=== PATIENT | female | born 1995 | race Caucasian/White ===

== ENCOUNTER 2018-08-02 14:04 | Emergency (ER) | payer OTHER ==
[~2018-08-02] VITALS: Ht 180.3 cm; Wt 91.6 kg
== END 2018-08-02 22:55 | disposition home or self-care (01) ==
LOC: ER 14:04
DX: S40.011A Contusion of right shoulder, initial encounter (principal); S30.1XXA Contusion of abdominal wall, initial encounter; S13.4XXA Sprain of ligaments of cervical spine, initial encounter; V49.9XXA Car occupant (driver) (passenger) injured in unspecified traffic accident, initial encounter; Y93.89 Activity, other specified; Y92.488 Other paved roadways as the place of occurrence of the external cause; Y99.8 Other external cause status